=== PATIENT | male | born 1990 | race Caucasian/White ===

== ENCOUNTER 2017-02-13 09:40 | Emergency (ER) | payer SELFPAY ==
[2017-02-13] MEDS ORDERED: DIPHTH,PERTUSS(ACELL),TET VAC 0.5 ML VIAL IM V ONE (10:27)
--- NOTE | 2017-02-15 09:42 | CONS ---
PEDRITO CELAYA V. : 1990 [id number] DATE OF ADMISSION: February 13, 2017 CHIEF COMPLAINT: Right hand pain/injury. 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 He reports noticing immediate perfuse bleeding and large skin laceration and wrapped the finger and presented to the ED. On arrival in the ED he was evaluated by Dr. Squires. Dr. Squires administered a local anesthetic and evaluated the wound under tourniquet. Dr. Squires then subsequently consulted me regarding concern for significant contamination and debris within the wound as well as difficulties with closure and concern for tendon laceration. Upon arrival and talking to the patient, this occurred approximately 30 minutes prior to his presentation. He had no other injuries. 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 He reports occasional alcohol consumption and occasional marijuana consumption. He does not smoke. REVIEW OF SYSTEMS: A 12-point ROS was obtained and was negative except for as discussed above in the HPI. PHYSICAL EXAMINATION: Focused hand exam was performed on this patient. The patient had previously received a local anesthetic however and was under tourniquet using a finger tourniquet. Exam revealed an approximately 3cm laceration extending from the dorsal surface of the small finger located directly over the proximal phalanx and extending distally in an oblique fashion to the dorsal ulnar surface of the digit. The neurovascular structures appear to be intact grossly. The extensor sigala had been lacerated and there is a small laceration to the sagittal band as it inserted into the extensor sigala region. There was a small bony abrasion, very minimal cortical disruption however, I would not consider this a gross fracture. This was likely where the disc abraded the bone. The patient was able to extend the digit at both the DIP and PIP joints. He was able to flex the finger fully. As such, there was no functional deficit of the small finger as relating to the tendon laceration. Again, the tendon laceration appeared to only involve maybe 25% of one of what appeared to be sagittal band. Sensation exam was limited by the patient's previous receipt of a local anesthetic to the area. Once the tourniquet was removed there was bleeding from many areas of the laceration and the finger did have good capillary refill. The tourniquet was then replaced. 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 PLAN: While under local anesthetic and under tourniquet, I was able to repair the laceration as well as the defect in the extensor sigala. This was done via suturing techniques. Please see the procedure note to this patient's encounter. Again, the patient's laceration was repaired and sutured in place. It was dressed accordingly and the patient will be given approximately 10 days of Keflex and plans to f/u in clinic for suture removal and further evaluation of the finger. JA: allyson CC: [facility]
--- NOTE | 2017-02-15 10:37 | PROCNOTE ---
ROSS CUNHA V. : 1990 V [id number] DATE OF PROCEDURE: February 13, 2017 PRE-PROCEDURAL DIAGNOSIS: Right small finger laceration. POST-PROCEDURAL DIAGNOSIS: Right small finger laceration. PROCEDURE PERFORMED: 1. I&D of right small finger laceration. 2. Closure of complex laceration, right small finger. PROCEDURE PERFORMED BY: Kristopher Wilkins M.D. ANESTHESIA: Local anesthesia, 0.5% Bupivacaine, local infiltration. This was performed by Dr. John Squires prior to my presentation in the ED. INDICATIONS: Ross Cunha is a 26-year-old male who sustained a complex laceration using an angle grinder machine knife setter on the right small finger. There was concern for potential tendon involvement and bony involvement as well as contamination by ED physician, John Squires, and I was consulted for further evaluation and management of this wound. PROCEDURE DESCRIPTION: Upon presentation the patient was already lying in the supine position and had already undergone a local anesthetic with 0.5% Bupivacaine. This was performed by Dr. John Squires. The patient's right small finger was under a small finger ring tourniquet. The laceration was noted to extend dorsal ulnarly in an oblique fashion towards the volar surface of the finger. There was significant contamination. Sandoval at this point was that this was part of the grinding disc that had let off some shards into the wound as it lacerated the finger. These were debrided and the wound was copiously irrigated with both sterile saline solution, a chlorhexidine solution as well as a betadine and saline solution. Again, I thoroughly debrided the wound with sharp dissection of what appeared to be necrotic tissues and debulked any of the particulate matter within the wound. The results of the irrigation were satisfactory and the wound was then loosely juxtaposed. We chose not to perform a tight closure on this finger as there were concerns given the contamination that it could become infected and drainage will be esposito in the wound healing. Thus, the wound edges were brought together loosely with use of a 4-0 nylon suture and the wound was then dressed with a combination of Xeroform and 3 inch clean gauze around the finger and hand to anchor the dressing to the hand. The hand was then wrapped in an LUCIA wrap loosely as well. The patient was given 10 days of antibiotics, I believe oral Keflex, and will f/u for suture removal and further evaluation in approximately 10 days time. YOSSI/allyson CC: Raul Matta
== END 2017-02-13 13:10 | disposition home or self-care (01) ==
LOC: ED 09:40
DX: S61.216A Laceration without foreign body of right little finger without damage to nail, initial encounter (principal); Z23 Encounter for immunization; Z87.891 Personal history of nicotine dependence; W29.8XXA Contact with other powered hand tools and household machinery, initial encounter; Y92.9 Unspecified place or not applicable